=== PATIENT | female | born 1975 | race Caucasian/White ===

== ENCOUNTER → 2021-11-12 10:29 | Outpatient (CLI) | payer OTHER, SELFPAY ==
--- NOTE | 2021-11-12 | DI.RAD.S_ITS ---
PROCEDURE: XR ABDOMEN MIN 2V INDICATIONS: Constipation, unspecified TECHNIQUE: 2 views of the abdomen were acquired. COMPARISON: None. FINDINGS: Surgical changes and devices: None. Bowel: No pneumoperitoneum. The bowel gas pattern is normal. Moderate amount of stool noted throughout the colon. Soft tissues: No masses; visualized solid organ contours appear normal in size. No suspicious abdominal calcifications. Bones: No suspicious bony abnormalities. IMPRESSION: Moderate colonic fecal loading. Dictated by: Rama Palma MD, PhD on 11/12/2021 at 15:44 Approved by: Rama Palma MD, PhD on 11/12/2021 at 15:45
== END ==
PROVIDERS: PCP Student in an Organized Health Care Education/Training Program; Referring Provider Surgery; Visit Provider Surgery
DX: K59.00 Constipation, unspecified (principal)
CPT/HCPCS: 74019

== ENCOUNTER → 2022-04-27 09:48 | Outpatient (CLI) | payer OTHER, SELFPAY ==
--- NOTE | 2022-04-27 09:50 | DI.MRI.S_ITS ---
PROCEDURE: MR CERVICAL SPINE WO CON INDICATIONS: Cervical myelopathy TECHNIQUE: Noncontrast sagittal T1 spin echo and T2 fast spin echo, sagittal STIR, foraminal oblique sagittal T2 fast spin echo, and axial gradient echo or T2 fast spin echo through the cervical spine. COMPARISON: [facility], CR, XR CERVICAL SPINE 2 OR 3 VIEWS, 02/27/2022, 8:40. [facility], MR, MR CERVICAL SPINE WITH/WITHOUT CONTRAST, 04/30/2021, 10:57. FINDINGS: Normal cervical spine vertebral body height and alignment. No suspicious focal marrow signal abnormality or bone marrow edema. Postsurgical changes of anterior fixation at C5-C6 and C6-C7 by means of low profile interbody devices. Normal and unchanged appearance of the hardware when compared with the prior study. Regional prevertebral and paraspinous soft tissues demonstrate no acute abnormality. Normal morphology and signal intensity of the cervical cord. C2-C3: No spinal canal or neural foraminal stenosis. C3-C4: No spinal canal or neural foraminal stenosis. C4-C5: No spinal canal or neural foraminal stenosis. C5-C6: Mild spinal canal stenosis due to posterior disc osteophyte complex. Mild right and moderate left neural foraminal narrowing due to facet and uncovertebral hypertrophy C6-C7: Mild spinal canal stenosis due to posterior disc osteophyte complex. Mild right and moderate left neural foraminal stenosis due to facet and uncovertebral hypertrophy. C7-T1: No spinal canal or neural foraminal stenosis. IMPRESSION: Moderate left and mild right neural foraminal narrowing at C5-C6 and C6-C7, unchanged from comparison MRI. Mild spinal canal stenosis at C5-C6 and C6-C7, unchanged from comparison MRI. Postsurgical changes of C5-C6 and C6-C7 ACDF. Dictated by: Humza Celaya M.D. on 04/29/2022 at 8:33 Approved by: Humza Celaya M.D. on 04/29/2022 at 8:38
== END ==
PROVIDERS: PCP Student in an Organized Health Care Education/Training Program; Referring Provider Orthopaedic Surgery; Visit Provider Orthopaedic Surgery
DX: M48.02 Spinal stenosis, cervical region (principal); G95.9 Disease of spinal cord, unspecified
CPT/HCPCS: 72141

== ENCOUNTER → 2023-09-09 10:28 | Outpatient (CLI) | payer OTHER, SELFPAY ==
[2023-09-09 13:32] LABS: Blood Urea Nitrogen 12 mg/dL (7-17); Calcium 9.6 mg/dL (8.4-10.2); Carbon Dioxide 38 mmol/L (22-32); Chloride 92 mmol/L (98-107); Estimated Glomerular Filt Rate > 60 mL/min (>60); Glucose 84 mg/dL (70-100); HEMOLYSIS < 15 (0-50); Potassium 3.5 mmol/L (3.4-5.1); Sodium 139 mmol/L (137-145)
== END ==
PROVIDERS: Referring Provider Internal Medicine Cardiovascular Disease; Visit Provider Internal Medicine Cardiovascular Disease
DX: I50.9 Heart failure, unspecified (principal)
CPT/HCPCS: 36415; 80048

== ENCOUNTER → 2024-03-30 07:36 | Outpatient (CLI) | payer OTHER, SELFPAY ==
--- NOTE | 2024-03-30 07:38 | DI.ECHO.S_ITS ---
[place] [facility]---------+ [facility] : : [address] : : [place] : : [id number] : : Phone: [phone] Echocardiogram Report + + :Name: TRESSA SANCHEZ Study Date: 03/30/2024 Height: 68 in : :[facility] ReadingLocation: Weight: 240 lb : : Gender: Female BSA: 2.2 m2 : :: 1975 Age: 49 yrs BP: 126/84 mmHg: :Reason For Study: HEART FAILURE : :Ordering Physician: VALERIO, : :DEBORAH Performed By: Yara Salazar : :Referring: DEBORAH PAYNE : + + Interpretation Summary 1) Normal left ventricular thickness and size with mildly reduced systolic function (EF 45-50%). Global hypokinesis that may be worse at the apex. 2) Normal right ventricular size and function. 3) No significant valvular abnormalities. 4) Compared to the Echo done 09/29/2023, LVEF has improved from 30-35% to 45- 50% on this study. Procedure: A two-dimensional transthoracic echocardiogram with color flow and Doppler was performed. The study quality was technically adequate. Comparison is made with the echocardiogram of 09/29/2023. The patient was in sinus rhythm with heart rates between 69-72 bpm during the exam. Left Ventricle: The left ventricle is normal in size and wall thickness. The ejection fraction is estimated to be 45-50%. Global hypokinesis that may be worse at the apex. Right Ventricle: The right ventricle is normal in size and function. Atria: The left atrial size is normal. Right atrial size is normal. There is no Doppler evidence for an interatrial shunt. Mitral Valve: The mitral valve is normal in structure and function. There is mild mitral regurgitation. Aortic Valve: The aortic valve is trileaflet. The aortic valve opens well. There is no aortic valve stenosis. No aortic regurgitation is present. Tricuspid Valve: The tricuspid valve is normal in structure and function. There is trace tricuspid regurgitation. Pulmonary artery pressures cannot be estimated because of the lack of a measurable TR jet velocity. Pulmonic Valve: The pulmonic valve leaflets are thin and pliable; valve motion is normal. There is trace pulmonic regurgitation. Great Vessels: The aortic root is normal size. The ascending aorta could not be visualized. The IVC is of normal diameter and collapses greater than 50% with a sniff. This suggests a low right atrial pressure of 3 mm Hg. Pericardium/ Pleura There is no pericardial effusion. There is no pleural effusion. MMode/2D Measurements & Calculations LVIDd: 5.8 cm LVOT diam: 2.0 cm LVIDs: 4.3 cm Ao root diam: 3.4 cm FS: 25.5 % Ao Arch Diam (Prox Trans): 3.0 cm EPSS: 1.1 cm IVSd: 0.90 cm LVPWd: 0.82 cm LV germain. diameter/BSA (cm/m^2): 2.6 LV sys. diameter/BSA (cm/m^2): 2.0 LA A2 area: 16.1 cm2 RA long axis: 4.5 cm LA A4 area: 19.0 cm2 RA area: 14.2 cm2 LA length (vol): 5.3 cm RA vol: 38.1 ml LA vol: 48.9 ml RA : 17.2 ml/m2 LA vol index: 22.2 ml/m2 IVC diam: 1.7 cm RVD1 (basal): 3.4 cm TAPSE: 1.9 cm Doppler Measurements & Calculations Ao V2 max: 106.5 cm/sec LVOT Max Babak: 74.6 cm/sec Ao V2 mean: 80.6 cm/sec LV V1 max P.2 mmHg Ao max P.5 mmHg LV V1 VTI: 16.1 cm Ao mean P.8 mmHg MEDARDO(I,D): 1.9 cm2 Ao V2 VTI: 26.7 cm MEDARDO(V,D): 2.3 cm2 sev ratio: 0.60 MEDARDO indexed to BSA (cm^2/m^2): 0.88 MV E max babak: 82.6 cm/sec PA V2 max: 88.0 cm/sec MV A max babak: 90.8 cm/sec PA V2 mean: 63.9 cm/sec MV E/A: 0.91 PA mean P.8 mmHg Med Peak E' Babak: 6.0 cm/sec PA pr(Accel): 17.3 mmHg E/E' med: 13.8 Lat Peak E' Babak: 9.0 cm/sec E/E' lat: 9.2 E/e' average: 11.5 MV dec time: 0.23 sec SV(LVOT): 51.9 ml Reading Physician:12:32 PM
== END ==
LOC: ECHO 07:38
PROVIDERS: PCP Family Medicine; Referring Provider Internal Medicine Cardiovascular Disease; Visit Provider Internal Medicine Cardiovascular Disease
DX: I34.0 Nonrheumatic mitral (valve) insufficiency (principal); I50.9 Heart failure, unspecified
CPT/HCPCS: 93306

== ENCOUNTER → 2025-07-05 07:44 | Outpatient (CLI) | payer OTHER, SELFPAY ==
--- NOTE | 2025-07-05 07:45 | DI.ECHO.S_ITS ---
[place] +---------+ [facility] : : [address] : [place] : : [id number] : : Phone: [phone] Echocardiogram Report + + :Name: TRESSA SANCHEZ Study Date: 07/05/2025 Height: 68 in : :[facility] ReadingLocation: Weight: 250 lb : : Gender: Female BSA: 2.2 m2 : :: 1975 Age: 50 yrs BP: 107/81 mmHg: :Reason For Study: CHRONIC HEART FAILURE : :Ordering Physician: VALERIO, : :DEBORAH Performed By: Humza Braxton : :Referring: DEBORAH PAYNE : + + Interpretation Summary 1) Normal left ventricular thickness and size with low risk systolic function (EF 50-55%). 2) Normal right ventricular size and function. 3) No significant valvular abnormalities. 4) Compared to the Echo done 03/30/2024, LVEF has increased from 45-50% to 50- 55% on this study. Procedure: A two-dimensional transthoracic echocardiogram with color flow and Doppler was performed. The study quality was technically adequate. Comparison is made with the echocardiogram of 03/30/2024. The patient was in normal sinus rhythm during the exam. Left Ventricle: The left ventricle is normal in size. Left ventricular wall thickness is at the upper limits of normal. There is no ventricular septal defect visualized. The ejection fraction is estimated to be 50-55%. There are no focal wall motion abnormalities. Right Ventricle: The right ventricle is normal in size and function. Atria: The left atrial size is normal. Right atrial size is normal. There is no Doppler evidence for an interatrial shunt. Mitral Valve: The mitral valve leaflets appear normal. There is no evidence of stenosis, fluttering, or prolapse. There is trace mitral regurgitation. Aortic Valve: The aortic valve is trileaflet. The aortic valve opens well. There is no aortic valve stenosis. No aortic regurgitation is present. Tricuspid Valve: The tricuspid valve leaflets are thin and pliable. There is a trace or physiologic amount of tricuspid regurgitation. Pulmonary artery pressures cannot be estimated because of the lack of a measurable TR jet velocity. Pulmonic Valve: The pulmonic valve leaflets are thin and pliable; valve motion is normal. There is trace pulmonic regurgitation. Great Vessels: The aortic root is normal size. The dimensions of the ascending aorta are normal. The pulmonary artery is normal size. The IVC is of normal diameter and collapses greater than 50% with a sniff. This suggests a low right atrial pressure of 3 mm Hg. Pericardium/ Pleura There is no pericardial effusion. MMode/2D Measurements & Calculations LVIDd: 5.4 cm LVOT diam: 2.2 cm LVIDs: 3.4 cm Ao root diam: 3.4 cm FS: 36.0 % EPSS: 0.80 cm IVSd: 1.1 cm LVPWd: 0.96 cm LV germain. diameter/BSA (cm/m^2): 2.4 LV sys. diameter/BSA (cm/m^2): 1.5 LA A2 area: 20.1 cm2 RA long axis: 3.0 cm LA A4 area: 19.5 cm2 RA area: 6.0 cm2 LA length (vol): 4.9 cm RA vol: 10.1 ml LA vol: 68.6 ml RA : 4.5 ml/m2 LA vol index: 30.5 ml/m2 IVC diam: 1.5 cm RVD1 (basal): 3.1 cm RVD2 (mid): 2.7 cm TAPSE: 2.1 cm Doppler Measurements & Calculations Ao V2 max: 101.4 cm/sec LVOT Max Babak: 89.9 cm/sec Ao V2 mean: 77.8 cm/sec LV V1 max P.2 mmHg Ao max P.1 mmHg LV V1 VTI: 19.3 cm Ao mean P.6 mmHg MEDARDO(I,D): 3.4 cm2 Ao V2 VTI: 22.2 cm MEDARDO(V,D): 3.5 cm2 sev ratio: 0.87 MEDARDO indexed to BSA (cm^2/m^2): 1.5 MV E max babak: 54.2 cm/sec TR max babak: 236.6 cm/sec MV A max babak: 73.9 cm/sec TR max P.4 mmHg MV E/A: 0.73 PA V2 max: 96.2 cm/sec Med Peak E' Babak: 4.6 cm/sec PA V2 mean: 67.2 cm/sec E/E' med: 11.7 PA mean P.0 mmHg Lat Peak E' Babak: 5.3 cm/sec PA pr(Accel): 37.9 mmHg E/E' lat: 10.2 E/e' average: 11.0 MV dec time: 0.24 sec SV(LVOT): 76.1 ml Reading Physician:10:01 AM
== END ==
LOC: ECHO 07:44
PROVIDERS: PCP Family Medicine; Referring Provider Family Medicine; Visit Provider Internal Medicine Cardiovascular Disease
DX: I50.9 Heart failure, unspecified (principal); R06.09 Other forms of dyspnea
CPT/HCPCS: 93306